=== PATIENT | female | born 2000 | race Caucasian/White ===

== ENCOUNTER 2023-12-01 04:29 | Emergency (ER) | payer MEDICAID, OTHER, SELFPAY ==
[2023-12-01 04:36] VITALS: BP 116/70; PULSE 105; RESP 18; TEMP 37; O2SAT 96; BMI 34.8
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
[2023-12-01 05:11] LABS: Add Manual Diff / Slide Review NO; Basophils Absolute Auto 100 /uL (0-100); Basophils Percent Auto 0.5 % (0-2); Eosinophils Absolute Auto 100 /uL (0-450); Eosinophils Percent Auto 1.1 % (2-4); Hematocrit 39.2 % (36-46); Hemoglobin 13.1 g/dL (12.0-16.0); Lymphocytes Absolute Auto 3100 /uL (1100-4500); Lymphocytes Percent Auto 28.7 % (25-40); Mean Corpuscular HGB Conc 33.3 % (30-36); Mean Corpuscular Hemoglobin 30.8 PG (26-34); Mean Corpuscular Volume 92.6 fL (80-100); Monocytes Absolute Auto 600 /uL (0-900); Monocytes Percent Auto 5.5 % (3-14); Neutrophils Absolute Auto 6900 /uL (1500-7000); Neutrophils Percent Auto 64.2 % (50-75); Platelet Count 298 X10^3/uL (150-400); Red Blood Cell Count 4.24 X10^6/uL (4.0-5.2); Red Cell Distribution Width 14.1 % (11.6-14.8); White Blood Cell Count 10.7 X10^3/uL (4.5-11.0)
[2023-12-01 05:24] LABS: Appearance Urine UA CLEAR; Bilirubin Urine UA NEGATIVE (NEGATIVE); Color Urine UA YELLOW; Glucose Urine UA NEGATIVE (Negative); Ketones Urine UA TRACE (NEGATIVE); Leukocyte Esterase Urine UA NEGATIVE (NEGATIVE); Nitrite Urine UA NEGATIVE (Negative); Occult Blood Urine UA NEGATIVE (Negative); Protein Urine UA NEGATIVE (Negative); Specific Gravity Urine UA 1.025 (1.000-1.035); Urobilinogen Urine UA 0.2 E.U./dL (0.2)
[2023-12-01 05:28] LABS: Ethanol (ETOH) 154 mg/dL; Lipase 155 U/L (23-300); Salicylate < 1.0 mg/dL (<20)
[2023-12-01 05:29] LABS: Acetaminophen < 10 ug/mL (10-30); Alanine Aminotransferase 22 IU/L (<35); Albumin 4.5 g/dL (3.5-5.0); Albumin Globulin Ratio 1.5 (1.0-2.8); Alkaline Phosphatase 65 U/L (38-126); Aspartate Aminotransferase 31 IU/L (14-36); BUN Creatinine Ratio 18.1 (6-22); Bilirubin Total 0.5 mg/dL (0.2-1.3); Blood Urea Nitrogen 19 mg/dL (7-17); Calcium 8.8 mg/dL (8.4-10.2); Carbon Dioxide 19 mmol/L (22-32); Chloride 110 mmol/L (98-107); Estimated Glomerular Filt Rate > 60 mL/min (>60); Glucose 84 mg/dL (70-100); HEMOLYSIS < 15 (0-50); Potassium 3.8 mmol/L (3.4-5.1); Sodium 141 mmol/L (137-145); Total Protein 7.5 g/dL (6.3-8.2)
[2023-12-01 05:31] LABS: Bacteria Urine None Seen; Culture Indicated Urine Cult Not Indicated; RBC Urine None Seen (0-5/HPF); Squamous Epithelial Cell Urine None Seen (0-5/HPF); Urine Volume 10mL (spun); WBC Urine None Seen (0-5/HPF)
[2023-12-01 05:32] LABS: UR Morphine/Opiate cutoff 300 Negative (Negative); Urine Amphetamines Negative (Negative); Urine Barbiturates Negative (Negative); Urine Benzodiazepines Negative (Negative); Urine Cocaine Negative (Negative); Urine MDMA Negative (Negative); Urine Methadone Negative (Negative); Urine Methamphetamines Negative (Negative); Urine Oxycodone Negative (Negative); Urine Phencyclidine Negative (Negative); Urine Tetrahydrocannabinol Negative (Negative); Urine Tricyclic Antidepressant Negative (Negative)
[2023-12-01 05:47] LABS: Pregnancy Test Serum,Qual Negative (Negative)
[2023-12-01 06:19] LABS: Thyroid Stimulating Hormone 3.43 uIU/mL (0.47-4.68)
--- NOTE | 2023-12-01 07:52 | PC.NURSE ---
Spoke to Yaritza at [facility] to provide information for DCR to be dispatched. Per Yaritza, DCR should be calling ED shortly.
[2023-12-01 07:53] LABS: COVID19 -Nasal RAPID Negative (Negative)
--- NOTE | 2023-12-01 08:17 | PC.NURSE ---
LAURA rBuce spoke to Dr Jimenes.
[2023-12-01 08:31] VITALS: BP 89/54; PULSE 100; RESP 16; O2SAT 96
[2023-12-01 08:43] VITALS: BP 115/60
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
--- NOTE | 2023-12-01 10:31 | PC.NURSE ---
0930 Boyfriend at bedside 0950 boyfriend out in lobby, mom at bedside. 1015 Mom gone, boyfriend back at bedside. Patient ok to have visitors, one at a time if she remains calm and cooperative per Dr. Jimenes.
--- NOTE | 2023-12-01 11:47 | PC.NURSE ---
1120 DCR Arlen at bedside speaking with patient.
[2023-12-01 11:56] VITALS: BP 121/64; PULSE 86; RESP 18; O2SAT 98
--- NOTE | 2023-12-01 12:13 | CM.SWNOTE ---
ED BEAMING INSPECTOR Note: Reviewed EMR and discussed patient with ED staff for pt?s medical status. At beginning of this BEAMING INSPECTOR's shift, LAURA Mckinley was dispatched and in process of MH assessment. Per EMR, police report, and [facility] review, patient has a history of suicidal gestures and has been detained in the past for risk to self. Discussed patient with LAURA Mckinley who spoke with patient, patient's boyfriend, and patient's mother. LAURA Mckinley states patient does not meet criteria for detainment at this time but will have referral to Mobile Crisis Outreach Team ([facility]OT), outpatient follow up and the expectation to adhere to safety plan (has history of follow through). Patient verbalized understanding when LAURA Mckinley explained that if patient does not follow through with safety plan/outpatient treatment, MCOT will intervene. Per patient's boyfriend, he is willing to take time off of work to assist with initial care needs while establishing OP MH care. ED BEAMING INSPECTOR provided Crisis contacts, MCOT handouts to LAURA Mckinley to add to list of OP BH facilities for patient to contact. Patient appreciative. LAURA Mckinley and BEAMING INSPECTOR informs ED provider, Dr. Jimenes, who indicates agreement. BEAMING INSPECTOR informs sales assistant institutional sales. Plan: Patient to discharge home with boyfriend, patient to follow up with OP BH treatment and MCOT. KADIE Limon
== END 2023-12-01 12:25 | disposition home or self-care (01) ==
PROVIDERS: Emergency Medicine; Emergency Provider Emergency Medicine
DX: R45.851 Suicidal ideations (principal); F10.129 Alcohol abuse with intoxication, unspecified; Y90.6 Blood alcohol level of 120-199 mg/100 ml
CPT/HCPCS: 80053; 80305; 80320; 80329; 81001; 83690; 84443; 84703; 85025; 87635; 99284; G0480